=== PATIENT | male | born 1975 | race Caucasian/White ===

== ENCOUNTER 2017-04-28 10:30 | Emergency (ER) | payer OTHER ==
[~2017-04-28] VITALS: Ht 188 cm; Wt 106.9 kg
[~2017-04-28 10:30] MED LIST: CILOXAN 0.100 DROP/5 LEFT EYE; NORCO 5/3251 TABLET PO; PRISTIQ100 MG PO
[2017-04-28] MEDS ORDERED: ZOFRAN4 MG PO (12:04)
[2017-04-28] MEDS ORDERED: TAMIFLU75 MG PO (12:04)
[2017-04-28 12:20] VITALS: BP 122/72
== END 2017-04-28 12:24 | disposition home or self-care (01) ==
LOC: EME 10:30
DX: B34.9 Viral infection, unspecified (principal); R11.2 Nausea with vomiting, unspecified; R19.7 Diarrhea, unspecified; M79.1 Myalgia; F17.200 Nicotine dependence, unspecified, uncomplicated
CPT/HCPCS: 87502; 99281; 99284